=== PATIENT | female | born 1970 | race Caucasian/White ===

== ENCOUNTER 2018-11-02 10:15 | Emergency (ER) | payer BC, SELFPAY ==
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
== END 2018-11-02 13:02 | disposition home or self-care (01) ==
LOC: ED 11:15
PROVIDERS: Emergency Provider Emergency Medicine; Family Provider Family Medicine; PCP Family Medicine
DX: S16.1XXA Strain of muscle, fascia and tendon at neck level, initial encounter (principal); V43.52XA Car driver injured in collision with other type car in traffic accident, initial encounter; S46.912A Strain of unspecified muscle, fascia and tendon at shoulder and upper arm level, left arm, initial encounter; S06.0X9A Concussion with loss of consciousness of unspecified duration, initial encounter; S33.5XXA Sprain of ligaments of lumbar spine, initial encounter
CPT/HCPCS: 70450; 72100; 72125; 73030; 99282

== ENCOUNTER 2019-05-28 14:11 | Emergency (ER) | payer BC, SELFPAY ==
[2019-05-28 14:12] VITALS: BP 142/85; PULSE 87; RESP 15; RESP 16; TEMP 36.8; O2SAT 96; O2SAT 97; BMI 34.9
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
--- NOTE | 2019-05-28 15:04 | EKG12_ITS ---
Test Reason : DYSRHYTHMIA Blood Pressure : / mmHG Vent. Rate : 083 BPM Atrial Rate : 083 BPM P-R Int : 154 ms QRS Dur : 082 ms QT Int : 412 ms P-R-T Axes : 030 023 044 degrees QTc Int : 484 ms Normal sinus rhythm Prolonged QT Abnormal ECG Confirmed by FRED MONROY, SHILPA ([id number]), film and video editor PATRICK VICENTE ([id number]) on 06/01/2019 11:23:40 A M Referred By: HOLLY Confirmed By:ARLEEN IBARRA MD
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
[2019-05-28] MEDS: 0.9% Normal Saline 1,000 ML 999 ML IV (15:29)
[2019-05-28] MEDS: DiphenhydrAMINE 50 MG/ML Syringe 25 MG IV (15:30)
[2019-05-28] MEDS: Ketorolac 30 MG/ML Syringe IV (15:31)
[2019-05-28] MEDS: proCHLORPERazine 10 MG/2 ML Vial IV (15:31)
--- NOTE | 2019-05-28 15:54 | ED.DEP ---
ED Disposition - Plan for ED Patient: Disposition: Home or Assisted Living Instructions: HEADACHE, Unspecified Referrals: Jesu Rosenbaum MD [NON-STAFF] -
[2019-05-28 16:59] VITALS: BP 124/71; PULSE 74; RESP 17; O2SAT 94
== END 2019-05-28 17:13 | disposition home or self-care (01) ==
PROVIDERS: Emergency Provider Emergency Medicine; Family Provider Family Medicine; PCP Family Medicine
DX: R51 Headache (principal); R11.2 Nausea with vomiting, unspecified; F32.9 Major depressive disorder, single episode, unspecified
CPT/HCPCS: 93005; 96361; 96374; 96375; 99285; J7030; A4216

== ENCOUNTER 2020-08-09 12:27 | Emergency (ER) | payer BC, SELFPAY ==
[2020-08-09 12:28] VITALS: BP 194/96; PULSE 85; RESP 24; TEMP 36.8; O2SAT 96; BMI 32.5
--- NOTE | 2020-08-09 12:37 | EKG12_ITS ---
Test Reason : CP Blood Pressure : / mmHG Vent. Rate : 071 BPM Atrial Rate : 071 BPM P-R Int : 136 ms QRS Dur : 074 ms QT Int : 408 ms P-R-T Axes : 041 034 072 degrees QTc Int : 443 ms Normal sinus rhythm Normal ECG Confirmed by MAX MONROY, TRE ([id number]), editor & co founder MERLE EVANS ([id number]) on 08/11/2020 11:30:17 AM Referred By: KIRAN Confirmed By:TRE SANTANA MD
--- NOTE | 2020-08-09 12:37 | RAD_ITS ---
STUDY: X-RAY CHEST REASON FOR EXAM: Female, 50 years old. CHEST PAIN, SHORTNESS OF BREATH, DIZZINESS AND CONFUSION X 2-3 DAYS TECHNIQUE: Single AP portable view of the chest. COMPARISON: None. FINDINGS: EKG electrodes are seen. The lungs are clear and expanded. There is no demonstrated pleural abnormality. Normal size heart. Calcification of bilateral hilar lymph nodes. Normal visualized pulmonary arteries. Normal visualized aortic arch and descending thoracic aorta. There are diffuse degenerative changes of the visualized thoracic spine. Normal visualized ribs, clavicles, and shoulders. There is no demonstrated abnormality of the visualized soft tissue structures of the upper abdomen. RAD/Chest 1 View (Portable) IMPRESSION: No acute abnormality is seen. Electronically Signed: Kelvin Santillan, at 13:16 EST , Service support ,
--- NOTE | 2020-08-09 12:40 | ED.VIS.GEN ---
History of Present Illness Chief Complaint: Chest Pain Informant: Patient Onset: Days Context: Gradual Onset Timing: Waxes and wanes Current Severity: Mild Maximum Severity: Moderate Narrative: Patient presents with chest pain that has been building for the last 3 or 4 days. She described initial ache in the center of her chest rating to the right upper chest that is now more sharp in nature. She describes pain with deep breath. She also reports some mild congestion with cough and change in her sense of smell. Temperature at home was 100.1. She denies significant cardiac history. - Past Medical History (1) Hypertension Status: Chronic (2) Anxiety and depression Status: Chronic (3) GERD (gastroesophageal reflux disease) Status: Chronic Past Medical History - Allergies and Home Meds Allergies/Adverse Reactions: Allergies Penicillins Allergy (Mild, Verified 08/09/20 12:32) Hives Primary Care Physician: Gerhard Mcduffie MD [Primary Care Provider] - Prior records reviewed: Yes Surgical History: noncontributory Smoking Status: Never smoker Review of Systems General: Denies: Chills, Fever Eyes: Denies: Visual changes - bilaterally ENT: Reports: - - Change in sense of smell and taste Cardiovascular: Reports: Chest pain Respiratory: Reports: Dyspnea, Cough Gastrointestinal: Denies: Abdominal pain, Nausea, Vomiting, Diarrhea Genitourinary: Denies: Dysuria Musculoskeletal: Denies: Swelling, Extremity Pain Skin: Denies: Rash Neurological: Denies: Headache Hematologic: Denies: Easy bruising, Easy bleeding Allergy: Denies: Uticaria Physical Exam Vital Signs/Narrative: Vital Signs Temp Pulse Resp BP Pulse Ox 08/09/20 12:28 98.3 F 85 24 H 194/96 H 96 Inital Vital Signs reviewed: Yes General: Well nourished, Well developed Head: Normocephalic Eyes: EOMI Neck: Supple Cardiovascular: Regular rate, Regular rhythm Respiratory: No distress, CTA bilaterally, Chest nontender Abdomen: Soft, Nontender Extremities: Nontender Skin: Normal color, No rash Neurological: Alert, Oriented x3, Normal Strength, Normal Sensation Psychological: Normal affect Diagnostic/Tx/Re-eval Impressions Chest X-Ray 08/09/20 12:37 IMPRESSION: No acute abnormality is seen. Electronically Signed: Kelvin Santillan, at 13:16 EST , Service support , 08/09/20 12:37 Chest 1 View (Portable) [RAD] Stat Laboratory Results 08/09/20 08/09/20 08/09/20 12:30 12:30 12:30 WBC 3.7 L RBC 4.45 Hgb 12.9 Hct 39.2 MCV 88.1 MCH 29.0 MCHC 32.9 RDW Std Deviation 43.3 RDW Coeff of Steve 13.4 Plt Count 200 MPV 10.9 Immature Gran % (Auto) 0.800 Neut % (Auto) 56.6 Lymph % (Auto) 30.0 [place] % (Auto) 7.0 Eos % (Auto) 5.1 H Baso % (Auto) 0.5 Absolute Neuts (auto) 2.1 Absolute Lymphs (auto) 1.12 Nucleated RBC % 0 D-Dimer Quant (PE/DVT) <= 0.27 Sodium 140 Potassium 4.0 Chloride 108 H Carbon Dioxide 26.0 Anion Gap 6 BUN 12 Creatinine 0.76 Estim Creat Clear Calc 66.83 Est GFR (MDRD) Af Amer 104 Est GFR (MDRD) Non-Af 86 BUN/Creatinine Ratio 15.9 Glucose 273 H Calcium 8.8 Troponin I < 0.015 COVID-19 (JAYME) 08/09/20 12:36 WBC RBC Hgb Hct MCV MCH MCHC RDW Std Deviation RDW Coeff of Steve Plt Count MPV Immature Gran % (Auto) Neut % (Auto) Lymph % (Auto) [place] % (Auto) Eos % (Auto) Baso % (Auto) Absolute Neuts (auto) Absolute Lymphs (auto) Nucleated RBC % D-Dimer Quant (PE/DVT) Sodium Potassium Chloride Carbon Dioxide Anion Gap BUN Creatinine Estim Creat Clear Calc Est GFR (MDRD) Af Amer Est GFR (MDRD) Non-Af BUN/Creatinine Ratio Glucose Calcium Troponin I COVID-19 (JAYME) Positive - EKG Initial EKG Interpretation: Sinus Rhythm - Sinus at 71 with no acute ischemia. - Medical Decision Making Patient was given aspirin on arrival. She is been monitored on residential monitor throughout her ED stay without change in cardiac rhythm. Chest pain work-up was undertaken and her troponin and D-dimer are both unremarkable. Chest x-ray is clear. Covid test does return positive. Patient was advised of this and told she needs to quarantine for 14 days. She was advised to contact her employer and any when she had contact with. ED Disposition - Plan for ED Patient: Disposition: Home or Assisted Living Diagnosis: COVID-19 Instructions: ED Viral Syndrome Referrals: Gerhard Mcduffie MD [Primary Care Provider] - 1-2 Weeks
[2020-08-09 12:51] LABS: Absolute Lymphocyte Count 1.12 X10^3/uL (0.83-4.51); Absolute Neutrophil Count 2.1 X10^3/uL (2.0-7.7); Basophil# 0.02 X10^3/uL; Basophil% 0.5 % (0-1); Eosinophil# 0.19 X10^3/uL; Eosinophils% 5.1 % (0-5); Hematocrit 39.2 % (37-47); Hemoglobin 12.9 g/dL (12.0-15.0); Lymphocyte # 1.12 X10^3/ul (4.0); Mean Corp Hgb Conc 32.9 g/dL (32-36); Mean Corpuscular Volume 88.1 fL (81-99); Mean Platelet Vol. 10.9 fl (6.2-12.0); Monocyte# 0.26 X10^3/uL; NRBC Flagged by Analyzer 0 % (0-5); Neutrophil # 2.11 X10^3/uL (2.7-7.7); Neutrophil % 56.6 % (47-70); Platelet Count 200 K/mm3 (150-450); RBC Distribution Width CV 13.4 % (11.6-14.6); RBC Distribution Width SD 43.3 fl (35.1-43.9); Red Blood Count 4.45 M/mm3 (4.2-5.4); White Blood Count 3.7 K/mm3 (4.4-11.0)
[2020-08-09] MEDS: Aspirin 81 MG TAB.CHEW 324 MG PO (12:58)
[2020-08-09 13:00] LABS: D-Dimer Quantitative (DVT/PE) <= 0.27 FEU/ug/m (0.27-0.49)
[2020-08-09 13:07] LABS: Anion Gap 6 (5-15); BUN 12 mg/dL (7-18); BUN/Creat Ratio 15.9 RATIO (10-20); Calcium,Total 8.8 mg/dL (8.5-10.1); Chloride 108 mmol/L (98-107); Creatinine, Serum 0.76 mg/dL (0.55-1.02); EST Glomerular Filtration Rate 86 mL/min (>60); Est Glom Filt Rate - Afr Amer 104 mL/min (>60); Estimated Creatinine Clearance 66.83 ml/min; Glucose 273 mg/dL (74-106); Sodium Level 140 mmol/L (136-145)
[2020-08-09 13:27] VITALS: BP 172/80; PULSE 73; RESP 16; O2SAT 98
[2020-08-09 14:08] LABS: Probe Check PASS; Specimen Processing Control PASS
[2020-08-09 14:24] VITALS: BP 171/81; PULSE 76; RESP 16; O2SAT 98
== END 2020-08-09 14:28 | disposition home or self-care (01) ==
PROVIDERS: Emergency Provider Emergency Medicine; PCP Family Medicine
DX: U07.1 COVID-19 (principal); I10 Essential (primary) hypertension; K21.9 Gastro-esophageal reflux disease without esophagitis; Z88.0 Allergy status to penicillin
CPT/HCPCS: 71045; 80048; 84484; 85025; 85379; 87635; 93005; 99284; U0002

== ENCOUNTER 2021-08-31 16:51 | Emergency (ER) | payer OTHER, SELFPAY ==
[2021-08-31 16:52] VITALS: BP 190/96; PULSE 73; RESP 18; TEMP 36.6; O2SAT 94; BMI 31.1
--- NOTE | 2021-08-31 17:36 | EKG12_ITS ---
Test Reason : PLACEMENT Blood Pressure : / mmHG Vent. Rate : 074 BPM Atrial Rate : 074 BPM P-R Int : 144 ms QRS Dur : 082 ms QT Int : 428 ms P-R-T Axes : 042 043 045 degrees QTc Int : 475 ms Normal sinus rhythm Normal ECG Confirmed by MAX MONROY, TRE ([id number]), supervising editor trailer PATRICK VICENTE ([id number]) on 09/01/2021 11:48:36 AM Referred By: JULIET Confirmed By:TRE SANTANA MD
--- NOTE | 2021-08-31 17:36 | EX.ED.DYSGE1 ---
HPI History of Present Illness Chief Complaint: Suicidal Narrative Narrative: Patient is a 51-year-old female with past medical history of hypertension and depression. She states that this has been slowly building for multiple months but she recently has had trouble in her marriage and this is led to worsening depression and thoughts of suicidal ideation. Patient denies any previous suicide attempt or psychiatric admission. However she does report that today she was thinking of driving her car into traffic or a ongoing train. She states she also thought about overdosing on all of her medications at home. She states she realized the symptoms are not normal and told her son who brought her into the hospital for evaluation [facility] Medical History Anxiety Depression GERD (gastroesophageal reflux disease) Hypertension Home Medications amlodipine [Norvasc] 5 mg PO DAILY 08/31/21 [History Last Taken Unknown] hydroxyzine pamoate [Vistaril] 25 mg PO DAILY PRN 08/31/21 [History Last Taken Unknown] venlafaxine [Effexor XR] 75 mg PO DAILY 08/31/21 [History Last Taken Unknown] Allergy/AdvReac Type Severity Reaction Status Date / Time Penicillins Allergy Mild Hives Verified 08/31/21 16:53 Social History Smoking Status: Never smoker [facility] ED Constitutional Constitutional ED: Denies chills or fever(s) ENT ENT ED: Denies sore throat Cardiovascular Cardiovascular: Denies chest pain Respiratory/Chest Respiratory/Chest: Denies cough or dyspnea Gastrointestinal Gastrointestinal: Denies abdominal pain, diarrhea, nausea or vomiting Genitourinary Genitourinary ED: Denies dysuria Musculoskeletal Musculoskeletal: Denies myalgias Integumentary Denies rash Neurologic Neurologic: Denies headache(s) Psychiatric Psychiatric: Reports change in appetite, depression, suicidal ideation and suicidal thoughts; Denies auditory hallucinations or visual hallucinations Hematologic/Lymphatic Hematologic/Lymphatic: Denies easy bleeding or easy bruising EXAM Physical Exam Const Vital Signs: 08/31/21 16:52 08/31/21 19:10 08/31/21 20:47 Temperature 97.8 F Temperature Source Temporal Pulse Rate 73 Respiratory Rate 18 16 16 Blood Pressure 190/96 H Blood Pressure Mean 127 Pulse Ox 94 Oxygen Delivery Method Room Air 08/31/21 21:00 Temperature Temperature Source Pulse Rate 70 Respiratory Rate 14 Blood Pressure 158/73 H Blood Pressure Mean 101 Pulse Ox 98 Oxygen Delivery Method Room Air Positive well nourished and well developed General Appearance ED: well developed HEENT Reports moist mucous membranes Eyes PERRL and EOMs intact bilaterally Neck supple Resp normal respiratory effort and clear to auscultation bilaterally Cardio regular rate and regular rhythm GI non-tender and non-distended Auscultation: normoactive bowel sounds Palpation: soft Extremity normal to inspection Neuro oriented x3 and CN's II-XII intact bilaterally Sensorium / Orientation: alert Psych Psych Narrative: Patient has a depressed/tearful affect with suicidal ideation. No auditory or visual hallucinations no homicidal ideation Skin no rashes or lesions noted MDM MDM MDM Narrative Medical decision making narrative: Patient presented to the ER with report of worsening depression and suicidal ideation. As she states she now has tangential thoughts of harming herself by overdosing or wrecking her car I do not feel it is safe for her to be discharged where she could harm herself. Therefore patient underwent a medical screening exam. Work-up revealed mild urinary tract infection but no signs of urosepsis or acute kidney injury. Therefore at this time patient is medically cleared for transfer/placement in a psychiatric facility. As she has worsening depression and persistent suicidal ideation now with plan she will need to be admitted for further treatment. Lab Data Attestation: I reviewed the patient's lab results. Labs: Laboratory Results - last 24 hr 08/31/21 08/31/21 08/31/21 17:16 17:16 17:20 WBC RBC Hgb Hct MCV MCH MCHC RDW Std Deviation RDW Coeff of Steve Plt Count MPV Immature Gran % (Auto) Neut % (Auto) Lymph % (Auto) Stephenson % (Auto) Eos % (Auto) Baso % (Auto) Absolute Neuts (auto) Absolute Lymphs (auto) Nucleated RBC % Sodium Potassium Chloride Carbon Dioxide Anion Gap BUN Creatinine Estim Creat Clear Calc Est GFR (MDRD) Af Amer Est GFR (MDRD) Non-Af BUN/Creatinine Ratio Glucose Calcium Urine Color Yellow Urine Clarity Clear Urine pH 5.0 Ur Specific Liberty 1.025 Urine Protein 30 H Urine Glucose (UA) Normal Urine Ketones 5 H Urine Occult Blood Negative Urine Nitrite Negative Urine Bilirubin Negative Urine Urobilinogen Normal Ur Leukocyte Esterase 25 H Urine RBC 0 SEEN Urine WBC 5-10 SEEN Ur Squamous Epith Cells 0-5 SEEN Urine Bacteria 1+ Urine Mucus 0 SEEN Urine Test Negative Salicylates < 1.7 L Urine Opiates Screen NEGATIVE Urine Methadone Screen NEGATIVE Acetaminophen < 2.0 L Ur Barbiturates Screen NEGATIVE Ur Phencyclidine Scrn NEGATIVE Ur Amphetamines Screen NEGATIVE U Methamphetamin-MDMA NEGATIVE U Benzodiazepines Scrn NEGATIVE Urine Cocaine Screen NEGATIVE U Cannabinoids Screen POSITIVE H Ur Drug Screen Comment Ethyl Alcohol < 3.0 08/31/21 08/31/21 17:20 17:20 WBC 7.4 RBC 5.00 Hgb 13.8 Hct 40.3 MCV 80.6 L MCH 27.6 MCHC 34.2 RDW Std Deviation 40.5 RDW Coeff of Steve 13.8 Plt Count 243 MPV 10.5 Immature Gran % (Auto) 0.300 Neut % (Auto) 68.5 Lymph % (Auto) 21.1 Stephenson % (Auto) 6.8 Eos % (Auto) 2.6 Baso % (Auto) 0.7 Absolute Neuts (auto) 5.0 Absolute Lymphs (auto) 1.55 Nucleated RBC % 0 Sodium 136 Potassium 3.4 L Chloride 102 Carbon Dioxide 26.0 Anion Gap 8 BUN 10 Creatinine 0.79 Estim Creat Clear Calc 63.57 Est GFR (MDRD) Af Amer 99 Est GFR (MDRD) Non-Af 82 BUN/Creatinine Ratio 12.7 Glucose 208 H Calcium 9.6 Urine Color Urine Clarity Urine pH Ur Specific Liberty Urine Protein Urine Glucose (UA) Urine Ketones Urine Occult Blood Urine Nitrite Urine Bilirubin Urine Urobilinogen Ur Leukocyte Esterase Urine RBC Urine WBC Ur Squamous Epith Cells Urine Bacteria Urine Mucus Urine Test Salicylates Urine Opiates Screen Urine Methadone Screen Acetaminophen Ur Barbiturates Screen Ur Phencyclidine Scrn Ur Amphetamines Screen U Methamphetamin-MDMA U Benzodiazepines Scrn Urine Cocaine Screen U Cannabinoids Screen Ur Drug Screen Comment Ethyl Alcohol Discharge Plan Triage Chief Complaint: Suicidal ED Provider: Jefe Santana Dx/Rx/DC Orders Clinical Impression: Depression with suicidal ideation, UTI (urinary tract infection) Prescriptions: No Action venlafaxine [Effexor XR] 75 mg capsule,extended release 24hr 75 mg PO DAILY RF: 0 amlodipine [Norvasc] 5 mg tablet 5 mg PO DAILY RF: 0 hydroxyzine pamoate [Vistaril] 25 mg capsule 25 mg PO DAILY PRN (Reason: Anxiety) RF: 0 Primary Care Provider: Jesu Rosenbaum Referrals: Jesu Rosenbaum [Primary Care Provider] - Disposition Disposition: Psychiatric Hospital or Unit Discharge Location: [facility]
[2021-08-31 17:45] LABS: Mucous, Urine 0 SEEN /hpf (<or=2+); Red Blood Cells-Urine 0 SEEN /hpf (0-5)
[2021-08-31 17:46] LABS: Absolute Lymphocyte Count 1.55 X10^3/uL (0.83-4.51); Basophil# 0.05 X10^3/uL; Basophil% 0.7 % (0-1); Eosinophil# 0.19 X10^3/uL; Eosinophils% 2.6 % (0-5); Hematocrit 40.3 % (37-47); Hemoglobin 13.8 g/dL (12.0-15.0); Lymphocyte # 1.55 X10^3/ul (0.83-4.51); Lymphocyte % 21.1 % (19-41); Mean Corp Hgb Conc 34.2 g/dL (32-36); Mean Corpuscular Hgb 27.6 pg (27.0-32.0); Mean Corpuscular Volume 80.6 fL (81-99); Mean Platelet Vol. 10.5 fl (6.2-12.0); Monocyte% 6.8 % (0-10); NRBC Flagged by Analyzer 0 % (0-5); Neutrophil # 5.04 X10^3/uL (2.7-7.7); Neutrophil % 68.5 % (47-70); Platelet Count 243 K/mm3 (150-450); RBC Distribution Width CV 13.8 % (11.6-14.6); RBC Distribution Width SD 40.5 fl (35.1-43.9); White Blood Count 7.4 K/mm3 (4.4-11.0)
[2021-08-31 17:47] LABS: Color, Urine Yellow (Yellow); Glucose, Dipstick Normal (Normal); Ketone-Dipstick 5 mg/dl (Negative); Leukocyte Esterase-Dipstick 25 /ul (Negative); Nitrite-Dipstick Negative (Negative); Occult Blood-Urine Negative /ul (Negative); Protein-Dipstick 30 mg/dl (Negative); Specific Gravity, Urine 1.025 (1.002-1.030); Urine Bilirubin Dipstick Negative (Negative); Urine Clarity Clear (Clear); Urine Urobilinogen Normal (Normal)
[2021-08-31 17:56] LABS: Anion Gap 8 (5-15); BUN 10 mg/dL (7-18); BUN/Creat Ratio 12.7 RATIO (10-20); Calcium,Total 9.6 mg/dL (8.5-10.1); Chloride 102 mmol/L (98-107); Creatinine, Serum 0.79 mg/dL (0.55-1.02); EST Glomerular Filtration Rate 82 mL/min (>60); Est Glom Filt Rate - Afr Amer 99 mL/min (>60); Estimated Creatinine Clearance 63.57 ml/min; Glucose 208 mg/dL (74-106); Potassium 3.4 mmol/L (3.5-5.1); Sodium Level 136 mmol/L (136-145)
[2021-08-31 18:05] LABS: Amphetamine Urine VISTA NEGATIVE (<1000 ng/mL); Barbiturate Urine VISTA NEGATIVE (< 200 ng/mL); Benzodiazepine Urine VISTA NEGATIVE (< 200 ng/mL); Cocaine Urine VISTA NEGATIVE (< 300 ng/mL); Ecstacy Urine VISTA NEGATIVE (< 500 ng/mL); Methadone Urine VISTA NEGATIVE (< 300 ng/mL); PCP Urine VISTA NEGATIVE (< 25 ng/mL); THC Urine VISTA POSITIVE (< 50 ng/mL); Vista UDS pH Range 5
[2021-08-31 18:09] LABS: Bacteria 1+ /hpf (None Seen); Internal QC Validated? YES +Cl - CLEAR BKGD; Pregnancy, Urine Negative Negative; Squamous Epithelial Cells - UA 0-5 SEEN /hpf (5-10); White Blood Cells 5-10 SEEN /hpf (0-5)
[2021-08-31 18:20] LABS: Acetaminophen (Tylenol) Level < 2.0 ug/mL (10.0-30.0); Alcohol, Blood (Medical)-Serum < 3.0 mg/dL; Salicylate < 1.7 mg/dL (2.8-20.0)
--- NOTE | 2021-08-31 18:21 | NURSING ---
CALLED [facility]. LEFT MESSAGE WITH ANSWERING SERVICE
--- NOTE | 2021-08-31 18:23 | NURSING ---
AMPARO BARRIGA, CALLED BACK WILL FAX CHART TO [phone]
--- NOTE | 2021-08-31 18:55 | ED.RN ---
Anastasia from [facility] called to talk to pt
--- NOTE | 2021-08-31 18:59 | ED.RN ---
Pt will be referred to a hospital by [facility] for placement
[2021-08-31 19:10] VITALS: RESP 16
--- NOTE | 2021-08-31 20:12 | ED.RN ---
[facility] CALLED WITH PATIENT TRANSFER AT THIS TIME. PATIENT CHART HAS BEEN SENT TO [facility]END[facility]. ALSO SENT O [facility] IN THE AM
[2021-08-31 20:47] VITALS: RESP 16
[2021-08-31] MEDS: Smz/Tmp Ds Tablet 1 TABLET PO (20:47)
[2021-08-31 21:00] VITALS: BP 158/73; PULSE 70; RESP 14; O2SAT 98
[2021-08-31 22:27] VITALS: RESP 16
[2021-08-31] MEDS: Ondansetron ODT 4 MG Tablet PO (22:51)
[2021-08-31 23:20] VITALS: RESP 16
== END 2021-08-31 23:53 ==
PROVIDERS: Emergency Provider Emergency Medicine
DX: R45.851 Suicidal ideations (principal); N39.0 Urinary tract infection, site not specified; F32.A Depression, unspecified; F41.9 Anxiety disorder, unspecified; K21.9 Gastro-esophageal reflux disease without esophagitis; I10 Essential (primary) hypertension; Z79.899 Other long term (current) drug therapy
CPT/HCPCS: 80048; 80307; 80329; 81001; 81025; 82077; 85025; 87086; 87088; 87426; 93005; 99285; G0480